=== PATIENT | male | born 1955 | race Caucasian/White ===

== ENCOUNTER 2019-01-21 04:08 | Observation (INO) | payer MEDICARE, OTHER ==
[2019-01-21 04:08] VITALS: BMI 35.2
--- NOTE | 2019-01-21 04:20 | C.PDOC ---
History Of Present Illness Patient presents to the ED complaining of intermittent left-sided chest pain for the past week, associated with headache and dizziness. Patient is currently speaking in complete sentences. Denies vomiting, fever, chills, and shortness of breath. Time Seen by Provider: 01/21/19 04:20 Chief Complaint (Nursing): Shortness Of Breath History Per: Patient History/Exam Limitations: no limitations Onset/Duration Of Symptoms: Days (1 week) Current Symptoms Are (Timing): Still Present Initiating Event: Other Quality: Dull Current Respiratory Medications: See Home Med List Severity: Moderate Pain Scale Rating Of: 4 Associated Symptoms: Chest Pain, Dizziness, Other (vomiting, shortness of breath. No headache). denies: Fever, Chills Reports Recently: Treated By A Physician Recent travel outside of the [place]: No Additional History Per: Family Past Medical History Reviewed: Historical Data, Nursing Documentation, Vital Signs - Medical History PMH: HTN Surgical History: CABG - [facility] CORONAR ARTERIOGR-2 CATH (06/09/14) LEFT HEART CARDIAC CATH (06/09/14) LT HEART ANGIOCARDIOGRAM (06/09/14) PACKED CELL TRANSFUSION (06/19/14) THORACENTESIS (06/19/14) Family History: States: Unknown Family Hx - Social History Hx Tobacco Use: No Hx Alcohol Use: No Hx Substance Use: No - Immunization History Hx Tetanus Toxoid Vaccination: No Hx Influenza Vaccination: No Hx Pneumococcal Vaccination: No Review Of Systems Constitutional: Negative for: Fever, Chills Eyes: Negative for: Vision Change ENT: Negative for: Throat Pain Cardiovascular: Positive for: Chest Pain. Negative for: Palpitations Respiratory: Negative for: Cough, Shortness of Breath Gastrointestinal: Negative for: Nausea, Vomiting, Abdominal Pain Genitourinary: Negative for: Dysuria Musculoskeletal: Negative for: Back Pain Skin: Negative for: Rash Neurological: Positive for: Headache, Dizziness. Negative for: Weakness, Numbness Psych: Negative for: Anxiety Physical Exam - Physical Exam Appears: Non-toxic, No Acute Distress Skin: Warm, Dry Head: Normacephalic Eye(s): bilateral: Normal Inspection Oral Mucosa: Moist Neck: Trachea Midline, Supple Chest: Symmetrical, No Tenderness, Other (CABG scar) Cardiovascular: Rhythm Regular Respiratory: No Rales, No Rhonchi, No Wheezing Gastrointestinal/Abdominal: Soft, No Tenderness Back: No CVA Tenderness Extremity: No Tenderness Extremity: Bilateral: Atraumatic, Normal Color And Temperature, Normal ROM Pulses: Left Dorsalis Pedis: Normal, Right Dorsalis Pedis: Normal Neurological/Psych: Oriented x3 Gait: Steady ED Course And Treatment - Laboratory Results Result Diagrams: 01/21/19 04:53 01/21/19 04:53 ECG: Interpreted By Me, Viewed By Me ECG Rhythm: Sinus Rhythm, Nonspecific Changes O2 Sat by Pulse Oximetry: 97 (RA) Pulse Ox Interpretation: Normal - Radiology CXR: Interpreted by Me, Viewed By Me Progress Note: Blood work, urinalysis, chest X-Ray, EKG, and CT scan of head ordered. Disposition Discussed With .: Samara Johnson Comment: accepted the pt on is service and took over the care at 5:53 AM Doctor Will See Patient In The: Hospital Counseled Patient/Family Regarding: Studies Performed, Diagnosis - Disposition Disposition: HOSPITALIZED Disposition Time: 04:20 Condition: FAIR Forms: [facility] ([place]) - POA Present On Arrival: Poor Glycemic Control - Clinical Impression Clinical Impression: Dyspnea, Chest pain - Scribe Statement The provider has reviewed the documentation as recorded by the Scribe (Tasneem Rg) All medical record entries made by the Scribe were at my direction and personally dictated by me. I have reviewed the chart and agree that the record accurately reflects my personal performance of the history, physical exam, medical decision making, and the department course for this patient. I have also personally directed, reviewed, and agree with the discharge instructions and disposition. Decision To Admit - Pt Status Changed To: Hospital Disposition Of: Observation - . Bed Request Type: Telemetry Admitting Physician: Samara Johnson Patient Diagnosis: Dyspnea, Chest pain
[2019-01-21 05:00] LABS: BASO # 0.1 K/uL (0.0-0.2); BASO % 0.5 % (0.0-2.0); EOS # 0.2 K/uL (0.0-0.7); EOS % 1.5 % (0.0-4.0); HEMOGLOBIN 14.6 g/dL (12.0-18.0); LYMPH # 1.7 K/uL (1.0-4.3); LYMPH % 15.8 % (20.0-40.0); MEAN CELL VOLUME 86.4 fL (80.0-94.0); MEAN CORPUSCULAR HEMOGLOBIN 28.6 pg (27.0-31.0); MEAN CORPUSCULAR HGB CONC 33.1 g/dL (33.0-37.0); MEAN PLATELET VOLUME 8.7 fL (7.2-11.7); MONO # 0.9 K/uL (0.0-0.8); MONO % 8.6 % (0.0-10.0); NEUT % 73.6 % (50.0-75.0); RBC 5.1 Mil/uL (4.40-5.90); RED CELL DISTRIBUTION WIDTH 13.7 % (11.5-14.5); WHITE BLOOD COUNT 10.9 K/uL (4.8-10.8)
[2019-01-21 05:17] LABS: INR 1.3; PARTIAL THROMBOPLASTIN TIME 40.5 SECONDS (21-34); PROTHROMBIN TIME 13.7 SECONDS (9.7-12.2)
[2019-01-21 05:20] LABS: ALB/GLOB RATIO 1.5 (1.0-2.1); ALBUMIN 4.4 g/dL (3.5-5.0); ALT/SGPT 16 U/L (21-72); AST/SGOT 17 U/L (17-59); BLOOD UREA NITROGEN 22 mg/dL (9-20); CALCIUM 9.5 mg/dl (8.6-10.4); GFR NON-AFRICAN AMERICAN > 60; LIPASE 105 U/L (23-300)
[2019-01-21 05:32] LABS: B-TYPE NATRIURETIC PEPTIDE 415 pg/mL (0-900)
[2019-01-21] MEDS ORDERED: Aspirin 325 mg EC Tablets PO ONE (06:06)
--- NOTE | 2019-01-21 06:44 | CT ---
Date of service: 01/21/2019 PROCEDURE: CT HEAD WITHOUT CONTRAST. HISTORY: headache COMPARISON: None available. TECHNIQUE: Axial computed tomography images were obtained through the head/brain without intravenous contrast. Radiation dose: Total exam DLP = 1100.57 mGy-cm. This CT exam was performed using one or more of the following dose reduction techniques: Automated exposure control, adjustment of the mA and/or kV according to patient size, and/or use of iterative reconstruction technique. FINDINGS: HEMORRHAGE: No intracranial hemorrhage. BRAIN: No mass effect or edema. Scattered focal lucencies in the subcortical and periventricular white matter suggestive for chronic microvascular ischemic change. Diffuse generalized parenchymal atrophy. Focal hypodensity seen within the left basal ganglia may represent a small lacunar infarct. VENTRICLES: Unremarkable. No hydrocephalus. CALVARIUM: Unremarkable. PARANASAL SINUSES: Moderate mucosal thickening of the ethmoid air cells. MASTOID AIR CELLS: Unremarkable as visualized. No inflammatory changes. OTHER FINDINGS: None. IMPRESSION: No acute intracranial abnormality. Diffuse generalized parenchymal atrophy. Focal hypodensity seen within the left basal ganglia may represent a small lacunar infarct. Sinus mucosal disease. If symptoms persists, consider correlation with MRI. A preliminary report was generated at 5:22 a.m. on 01/21/[address] Susan Umana from [facility].
[2019-01-21 06:57] VITALS: RESP 20
--- NOTE | 2019-01-21 07:36 | CP.PCM.PN ---
Subjective - Date & Time of Evaluation Date of Evaluation: 01/21/19 Time of Evaluation: 07:36 - Subjective Subjective: 63 year old male with a past medical history of CAD (3 Vessel s/p CABG), Gi bleed, and nstemi who presents to the hospital for chest pain and shortness of breath since yesterday. Patient states it was located on the left side of his chest and was sharp in nature with no radiation. He rates it a 6/10 in severity when the most intense. Patient denies any alleiviating or modifying factors in conjunction with the symptoms. Patient denies any fevers, chills, headaches, nausea, vomiting, changes in vision, or any other complaints. PMD: Dr. Omar Tidwell Surgical history: CABG Allergies: Denies Medications: Can't recall them Social history: Denies alcohol or smoking history. Denies illicit drug use. Objective - Vital Signs/Intake and Output Vital Signs (last 24 hours): Temp Pulse Resp BP Pulse Ox 98.0 F 91 H 20 123/73 95 01/21/19 06:56 01/21/19 06:56 01/21/19 06:56 01/21/19 06:56 01/21/19 06:56 - Labs Labs: 01/21/19 04:53 01/21/19 04:53 PT 13.7 SECONDS (9.7-12.2) H 01/21/19 04:53 INR 1.3 01/21/19 04:53 APTT 40.5 SECONDS (21-34) H 01/21/19 04:53 - Head Exam Head Exam: ATRAUMATIC, NORMAL INSPECTION - Eye Exam Eye Exam: Normal appearance, PERRL Pupil Exam: NORMAL ACCOMODATION, PERRL. absent: Irregular, Unequal - ENT Exam ENT Exam: Mucous Membranes Moist, Normal Oropharynx - Respiratory Exam Respiratory Exam: Clear to Ausculation Bilateral, NORMAL BREATHING PATTERN. absent: Prolonged Expiratory Phase, Respiratory Distress - Cardiovascular Exam Cardiovascular Exam: REGULAR RHYTHM, +S1, +S2 - GI/Abdominal Exam GI & Abdominal Exam: Soft, Normal Bowel Sounds. absent: Hyperactive Bowel Sounds - Neurological Exam Neurological Exam: Alert, Awake, CN II-XII Intact, Oriented x3 - Psychiatric Exam Psychiatric exam: Normal Affect, Normal Mood - Skin Skin Exam: Dry, Intact, Normal Color Assessment and Plan - Assessment and Plan (Free Text) Assessment: 63 year old male with a past medical history of CAD (3 Vessel s/p CABG), Gi bleed, and nstemi who presents to the hospital for chest pain and shortness of breath since yesterday. Plan: 1.Chest pain ASA 325MG PO STAT given in E.D. EKG:NSR @97 bpm. Nonspecific changes CXR:mild venous congestion Troponin (-)x1. 2.CAD s/p CABG (2013) at [facility] in [place], [place] PPX -Lovenox Dispo: Patient symptoms resovled. Patient has appointment set up with Dr. Yaw Nelson. Patient stable for discharge. Discharge Instructions: 1.F/u with PMD within 5 days of discharge. 2.F/u with Patient Account Specialist within 5 days of discharge. 3.Return to hospital for any new or worsening symptoms. Medications: Patient has all of his medications and doesn't need refills at this time. Plan discussed with Attending Dr. Johnson. Santiago Wilkinson, PGY-2
[2019-01-21 08:11] VITALS: BP 143/72; PULSE 92; TEMP 98.6; O2SAT 96
[2019-01-21] MEDS ORDERED: Enoxaparin 40 mg Syringe SC SCH (10:00)
--- NOTE | 2019-01-21 10:22 | RAD ---
Chest x-ray single frontal view HISTORY: Shortness of breath. COMPARISON: 06/09/2014 Findings: Prominent patchy increased markings at the left lung base. Mild venous congestion. Enlarged ectatic aorta. Cardiomegaly. Status post median sternotomy. Degenerative changes in the spine and shoulders. Impression: Prominent patchy increased markings at the left lung base. Mild venous congestion. Enlarged ectatic aorta. Cardiomegaly. Status post median sternotomy.
--- NOTE | 2019-01-21 14:04 | CARD ---
APPROVED REPORT Date of service: 01/21/2019 EKG Measurement Heart [id number] VT [id number] <Conclusion> Sinus tachycardia Possible Inferior infarct, age undetermined Abnormal ECG
--- NOTE | 2019-01-22 08:32 | HP ---
HISTORY OF PRESENT ILLNESS: The patient is a 63-year-old male with chief complaint of dizziness, weakness, headache; as he came to the hospital, advised admission. The patient admits to a history of CABG in the past, 5 years ago. The patient had an MRI done as an outpatient . PHYSICAL EXAMINATION: GENERAL: The patient is awake, alert, oriented. VITAL SIGNS: Temperature 98, pulse 90. HEENT: Within normal limits. NECK: Supple. CHEST: Symmetrical. HEART: Regular. ABDOMEN: Soft. EXTREMITIES: No edema. ASSESSMENT AND PLAN: The patient has some dizziness, insufficiency vertigo. The patient bed rest, neuro check. Samara Johnson MD
== END 2019-01-21 12:51 | disposition home or self-care (01) ==
LOC: C.ER 04:08 → C.9E 05:51 → C.5S 06:13
PROVIDERS: ADMIT Internal Medicine Pulmonary Disease; ATTEND Internal Medicine Pulmonary Disease
DX: R07.9 Chest pain, unspecified (principal); R06.00 Dyspnea, unspecified; R42 Dizziness and giddiness; Z95.1 Presence of aortocoronary bypass graft; I25.2 Old myocardial infarction; R51 Headache
CPT/HCPCS: 70450; 71045; 80053; 83690; 83880; 84484; 85025; 85610; 85730; 93005; 99285; G0378; J1650